=== PATIENT | male | born 2000 | race Caucasian/White ===

== ENCOUNTER 2025-02-25 18:13 | Emergency (ER) | payer OTHER ==
[~2025-02-25] VITALS: Ht 177.8 cm; Wt 99.3 kg
[2025-02-25] MEDS: LIDOCAINE 2% MDV 20 ML VIAL SC ONE (21:50)
[2025-02-25 22:46] VITALS: BP 119/56; TEMP 97.5; O2SAT 96
== END 2025-02-25 22:51 | disposition home or self-care (01) ==
LOC: M ED 18:13
DX: S61.210A Laceration without foreign body of right index finger without damage to nail, initial encounter (principal); W26.8XXA Contact with other sharp object(s), not elsewhere classified, initial encounter; Z88.1 Allergy status to other antibiotic agents; Y92.9 Unspecified place or not applicable; Y93.89 Activity, other specified; Y99.9 Unspecified external cause status